=== PATIENT | male | born 1990 | race Caucasian/White ===

== ENCOUNTER → 2023-07-03 13:57 | Outpatient (BNVA) | payer MEDICAID, SELFPAY | PROVIDERS: Family Provider Family Medicine; PCP Family Medicine | DX: J02.9 Acute pharyngitis, unspecified (principal) | CPT/HCPCS: 87880 ==

== ENCOUNTER 2023-07-05 03:20 | Emergency (ER) | payer MEDICAID, SELFPAY ==
[2023-07-05 03:25] VITALS: BP 158/103; PULSE 96; RESP 18; TEMP 36.7; O2SAT 99; BMI 27.8
--- NOTE | 2023-07-05 03:45 | ED_ITS ---
HPI - URI/Sore Throat 2 General: Chief Complaint: Upper Respiratory Infection Stated Complaint: Sore Throat Time Seen by Provider: 07/05/23 03:22 History of Present Illness: Patient presents to the ER with complaints of sore throat, problems swallowing, problems talking. Patient said he is on day 3 of his Z-Harman and is not getting any better. Patient was seen at urgent care where a strep swab which was negative but they went ahead and treated him with a Z-Harman anyways. Patient said he is only getting worse. The right side of his neck is more swollen than the left side of his neck, it hurts all up into his right ear but not his left ear. Review of Systems 2 General: Reports: 10 or more systems reviewed and unremarkable except in HPI and below Physical Exam 2 Const: COMMON NORMALS: no acute distress, average body habitus, patient oriented x3, no limitations, healthy appearing, alert and well nourished HENMT: COMMON NORMALS: normocephalic, atraumatic, hearing grossly normal bilaterally, external ears normal, Normal external nose present and moist oral mucous membranes; oropharynx not normal (White exudative patches erythema all over the oropharynx right side might b) HEAD & SCALP: normocephalic and atraumatic NOSE: N ormal external nose present EXTERNAL EAR: Yes external ears normal OTHER: Right-sided oropharynx more swollen on the left side. Right neck glands more swollen the left neck gland. Neck/C-Spine: COMMON NORMALS: full ROM, supple, no meningeal signs, no JVD and Thyroid normal; negative for no lymphadenopathy (Right cervical lymphadenopathy) THYROID: T hyroid normal Chest: COMMONS NORMALS: normal inspection of the chest and normal palpation of entire chest wall Resp: COMMON NORMALS: normal respiratory effort, No retractions, No use of accessory muscles and clear to auscultation bilaterally AUSCULTATION: clear to auscultation bilaterally Cardio: COMMON NORMALS: no JVD, regular rate, regular rhythm, S1 normal heart sound present, S2 normal heart sound present, No gallops present (Cardio), No clicks present (Cardio), No murmurs present (Cardio) and No rub (Cardio) R ATE: regular rate RHYTHM: regular rhythm HEART SOUNDS: S1 normal heart sound present and S2 normal heart sound present GI: COMMON NORMALS: Normal to inspection, nondistended, normoactive bowel sounds present, Soft to palpation, non-tender, No hepatosplenomegaly present and no masses PALPATION: Yes Soft to palpation and Yes No hepatosplenomegaly present Neuro: COMMON NORMALS: patient oriented x3 SENSORIUM/ORIENTATION: Yes alert MENINGEAL SIGNS: Yes no meningeal signs Course 2 Vital Signs: Vital signs: Vital Signs Temperature 98.0 F 07/05/23 03:25 Pulse Rate 96 07/05/23 03:25 Respiratory Rate 18 07/05/23 03:25 Blood Pressure 158/103 07/05/23 03:25 Pulse Oximetry 99 07/05/23 03:25 Oxygen Delivery Me thod Room Air 07/05/23 03:25 MDM - URI/Sore Throat Medical Decision Making Patient presents to the ER with right neck swelling radiating to his ear. Patient lab work that revealed a white count of 16.26. He had neck CT that showed right palatine tonsillitis with small focal phlegmon or early abscess formation. Patient was given the options of being transferred to [place] for definitive treatment or trying to follow-up with ENT as soon as possible today here for treatment here. He chose this option he does know that there is a possibility of the ENT may not be able get him in today or tomorrow and if symptoms worsen that he will have to be immediately transferred to [place] for definitive treatment. He is okay with this and understands the risks. Patient be discharged on clindamycin and prednisone and be given the number for ENT to have him call at 8 AM to schedule an appointment. Differential Diagnosis Likely pharyngitis; Unlikely upper respiratory infection, croup, otitis media, sinusitis, viral infection, bronchitis or influenza Medical Records I reviewed the patient's medical records. Lab Data I reviewed the patient's lab results. 07/05/23 03:55 07/05/23 03:[address] 07/05/23 04:12 IMPRESSION: Right palatine tonsillitis. There is small focal phlegmon or early abscess formation at the lateral margin of the tonsil. Laboratory Results WBC 16.26 10^3/uL (3.29-11.43) H 07/05/23 03:55 RBC 4.33 10^6/uL (3.85-5.65) 07/05/23 03:55 Hgb 14.30 g/dL (11.27-16.99) 07/05/23 03:55 Hct 41.8 % (37-53) 07/05/23 03:55 MCV 96.5 fl (82-101) 07/05/23 03:55 MCH 33.0 pg (27-33) 07/05/23 03:55 MCHC 34.2 g/dL (30-55) 07/05/23 03:55 RDW 12.3 % (12.1-15.1) 07/05/23 03:55 Plt Count 376 10^3/cmm (157-399) 07/05/23 03:55 MPV 8.9 fL (7.4-10.4) 07/05/23 03:55 Neut % (Auto) 66.4 % 07/05/23 03:55 Lymph % (Auto) 16.9 % 07/05/23 03:55 [place] % (Auto) 12.2 % 07/05/23 03:55 Eos % (Auto) 2.7 % 07/05/23 03:55 Baso % (Auto) 0.4 % 07/05/23 03:55 Neut # (Auto) 10.79 10^3/uL (1.8-7.7) H 07/05/23 03:55 Lymph # (Auto) 2.8 10^3/uL (0.8-4.8) 07/05/23 03:55 [place] # (Auto) 2.0 10^3/uL (0.2-0.9) H 07/05/23 03:55 Eos # (Auto) 0.4 10^3/uL (0.0-0.8) 07/05/23 03:55 Baso # (Auto) 0.1 10^3/uL (0.0-0.1) 07/05/23 03:55 Nucleated RBC % (auto) 0 % 07/05/23 03:55 Nucleated RBCs # 0.0 /100WBC 07/05/23 03:55 Sodium 140 mmol/L (136-145) 07/05/23 03:55 Potassium 3.6 mmol/L (3.5-5.1) 07/05/23 03:55 Chloride 101 mmol/L (98-107) 07/05/23 03:55 Carbon Dioxide 28 mmol/L (22-29) 07/05/23 03:55 Anion Gap 14.6 (5-19) 07/05/23 03:55 BUN 7 mg/dL (6-20) 07/05/23 03:55 Creatinine 0.7 mg/dL (0.7-1.2) 07/05/23 03:55 GFR Calculation 130.7 mL/min (90-130) H 07/05/23 03:55 Glucose 96 mg/dL (65-115) 07/05/23 03:55 Calculated Osmolality 288 mOsm/kg (285-295) 07/05/23 03:55 Calcium 9.4 mg/dL (8.5-10.5) 07/05/23 03:55 Total Bilirubin 0.2 mg/dL (0.15-1.2) 07/05/23 03:55 AST 18 U/L (0-40) 07/05/23 03:55 ALT 21 U/L (0-41) 07/05/23 03:55 Alkaline Phosphatase 108 U/L (40-130) 07/05/23 03:55 Total Protein 7.5 g/dL (6.6-8.7) 07/05/23 03:55 Albumin 4.0 g/dL (3.5-5.2) 07/05/23 03:55 Globulin 3.5 g/dL (1.3-4.6) 07/05/23 03:55 All radiology interpretation(s) finalized by discharge Discharge Plan Discharge Patient Disposition: Home Clinical Impression: Abscess, peritonsillar Condition: Stable Prescriptions: No Action azithromycin 250 mg tablet See Rx Instructions PO .COMPLEX Qty: 6 0RF Rx Instructions: For 250 mg dose pack: take 500 mg today (day 1), then 250 mg for 4 days (days 2-5) PO Discharge Orders: Discharge ED (Routine); Ordered 07/05/23 Ordered By: Ashutosh Munguia Referrals: Ferdinand Hernandez MD [Physician] - 07/05/23 (Diagnosis right peritonsillar abscess) Patient Instructions: Peritonsillar Abscess (ED) Activity Restrictions/Additional Instructions: Please call Dr. York's office first thing during normal business hours to see about getting a referral follow-up from the ER and for diagnosis right peritonsillar abscess. He had been referred to case management to get an ENT appointment also they may be calling you if they schedule this ahead of you. If your symptoms worsen such as shortness of breath, problems swallowing or speaking, please return to the ER immediately as you may need to be transferred to higher level care facility. Please finish all your antibiotics and steroids as directed. Coding Level of Care Code ED Logistical Engineer for Enriqueta Sr
[2023-07-05] MEDS: methylPREDNISolone sod succ 125 mg/2 mL INJ IVP (03:56)
[2023-07-05 04:05] LABS: Basophils # 0.1 10^3/uL (0.0-0.1); Basophils % 0.4 %; Eosinophils # 0.4 10^3/uL (0.0-0.8); Eosinophils % 2.7 %; Hematocrit 41.8 % (37-53); Lymphocytes # 2.8 10^3/uL (0.8-4.8); Lymphocytes % 16.9 %; Mean Corpuscular HGB Conc 34.2 g/dL (30-55); Mean Corpuscular Volume 96.5 fl (82-101); Mean Platelet Volume 8.9 fL (7.4-10.4); Monocytes % 12.2 %; Neutrophils # 10.79 10^3/uL (1.8-7.7); Neutrophils % 66.4 %; Nucleated Red Blood Cells % 0 %; Platelet Count 376 10^3/cmm (157-399); Red Blood Count 4.33 10^6/uL (3.85-5.65); Red Cell Distribution Width 12.3 % (12.1-15.1); White Blood Count 16.26 10^3/uL (3.29-11.43)
--- NOTE | 2023-07-05 04:12 | CTR_ITS ---
PROCEDURE INFORMATION: Exam: CT Neck With Contrast Exam date and time: 07/05/2023 4:32 AM Age: 33 years old Clinical indication: Throat pain; Prior surgery; Surgery date: 6+ months; Surgery type: [place] teeth 2009; Patient HX: Sore throat for 1 week; Additional info: Pharyngitis, edema, R/O peritonsillar abscess TECHNIQUE: Imaging protocol: Computed tomography of the neck with contrast. Radiation optimization: All CT scans at this facility use at least one of these dose optimization techniques: automated exposure control; mA and/or kV adjustment per patient size (includes targeted exams where dose is matched to clinical indication); or iterative reconstruction. Contrast material: OMNI 350; Contrast volume: 80 ml; Contrast route: INTRAVENOUS (IV); REPORTING DATA: Count of CT and Cardiac NM exams in prior 12 months: This patient has received 0 known CTs and 0 known cardiac nuclear medicine studies in the 12 months prior to the current study. COMPARISON: No relevant prior studies available. RADIATION DOSE METRICS: Total DLP (mGy-cm): 306.61 FINDINGS: Pharynx: Enlarged right palatine tonsil. Small fluid collection at the lateral margin measures 1.4 cm x 1 cm best seen axial series 3, image 51 which extends 1.2 cm craniocaudad height. Diffuse edema and some free fluid extending throughout the right parapharyngeal space. Generalized mass effect from the enlarged tonsil and edematous tissue. Larynx: Unremarkable. Epiglottis is normal. Prevertebral and retropharyngeal spaces: Unremarkable. Salivary glands: Normal. Glands are normal in size. Thyroid: Normal. No enlarged or calcified nodules. Lymph nodes: Mildly enlarged right cervical level 2 lymph node measures 2.2 cm x 1.4 cm. Unremarkable enhancement. Normal morphology. Trachea: Visualized trachea is unremarkable. Lungs: Unremarkable as visualized. Bones/joints: Unremarkable. No acute fracture. Soft tissues: Unremarkable. No significant soft tissue swelling. CT/CT neck w con* [id number] IMPRESSION: Right palatine tonsillitis. There is small focal phlegmon or early abscess formation at the lateral margin of the tonsil.
[2023-07-05 04:26] LABS: Alanine Aminotransferase 21 U/L (0-41); Alkaline Phosphatase 108 U/L (40-130); Anion Gap 14.6 (5-19); Aspartate Amino Transferase 18 U/L (0-40); Blood Urea Nitrogen 7 mg/dL (6-20); Calcium 9.4 mg/dL (8.5-10.5); Carbon Dioxide 28 mmol/L (22-29); Chloride 101 mmol/L (98-107); Globulin 3.5 g/dL (1.3-4.6); Glomerular Filtration Rate 130.7 mL/min (90-130); Glucose 96 mg/dL (65-115); Osmolality Calculated 288 mOsm/kg (285-295); Potassium 3.6 mmol/L (3.5-5.1); Sodium 140 mmol/L (136-145); Total Bilirubin 0.2 mg/dL (0.15-1.2); Total Protein 7.5 g/dL (6.6-8.7)
[2023-07-05] MEDS: diphenhydrAMINE 50 mg/mL SDV 1mL IVP (04:26)
[2023-07-05] MEDS: iohexol 350 mg/mL 500 mL Btl (per mL) IV (04:41)
[2023-07-05] MEDS: clindamycin 600 MG/50 ML PREMIX 100 MG IV (04:57)
[2023-07-05 05:25] VITALS: BP 158/103; PULSE 88; RESP 16; O2SAT 96
--- NOTE | 2023-07-05 07:12 | DCPLANNER ---
Message sent to ENT for referral od RT peritonsillar Abscess.
== END 2023-07-05 05:32 | disposition home or self-care (01) ==
PROVIDERS: Emergency Provider Emergency Medicine
DX: J36 Peritonsillar abscess (principal)
CPT/HCPCS: 70491; 80053; 85025; 87040; 87070; 96365; 96375; 99285; J1200; J2930; J3490; Q9967